=== PATIENT | male | born 1960 | race Caucasian/White ===

== ENCOUNTER → 2023-07-08 10:17 | Outpatient (REF) | payer OTHER, SELFPAY ==
[2023-07-08 12:34] LABS: Rubella Positive
[2023-07-08 13:05] LABS: Hepatitis B Surface Antibody Negative
== END ==
LOC: OHS 10:17
PROVIDERS: ATTENDING PHYSICIAN Nurse Practitioner Family
DX: Z23 Encounter for immunization (principal); Z13.9 Encounter for screening, unspecified
CPT/HCPCS: 36415; 71046; 86706; 86735; 86762; 86765; 86787

== ENCOUNTER → 2023-09-21 09:36 | Outpatient (REF) | payer OTHER, SELFPAY ==
[2023-09-22 19:23] LABS: Hepatitis B Surface Antibody Negative
== END ==
LOC: OHS 09:36
PROVIDERS: ATTENDING PHYSICIAN Nurse Practitioner Family; REFERRING PHYSICIAN Internal Medicine Endocrinology, Diabetes & Metabolism
DX: Z23 Encounter for immunization (principal)
CPT/HCPCS: 36415; 86706

== ENCOUNTER → 2024-04-03 10:39 | Outpatient (REF) | payer OTHER, SELFPAY ==
[2024-04-03 12:54] LABS: Hepatitis B Surface Antibody Positive
== END ==
LOC: OHS 10:39
PROVIDERS: ATTENDING PHYSICIAN Nurse Practitioner Family
DX: Z23 Encounter for immunization (principal)
CPT/HCPCS: 36415; 86706